=== PATIENT | male | born 1990 | race Caucasian/White ===

== ENCOUNTER 2021-11-04 21:28 | Emergency (ER) | payer OTHER, SELFPAY ==
[2021-11-04 23:06] VITALS: BP 168/97; PULSE 78; RESP 18; TEMP 36.4; O2SAT 95; BMI 31.5
--- NOTE | 2021-11-05 05:08 | ED.ANIMALBIT ---
HPI - Animal Bite General Chief Complaint: Wound/Laceration Stated Complaint: bit by a raccoon Time Seen by Provider: 11/05/21 04:45 Source: patient Mode of arrival: ambulatory Limitations: no limitations History of Present Illness HPI narrative: 31-year-old male who presents emergency department for evaluation of a raccoon bite to his left ring finger. The patient states that he w The patient states that he started a raccoon and the raccoon then did his finger. The raccoon then ran away. The patient noticed a small puncture wound to his left ring finger. He states that he irrigated and washed the wound at home. He was concerned about possible rabies so he came to the emergency department for evaluation. He states that his last tetanus shot was greater than 10 years. He denied being ill in any way prior to this event.ent onto his porch to move a box and there was a raccoon by the box. complaint: animal bite Onset (ago): hour(s) Animal: other (raccoon) Mechanism: bite Location: other Location - Extremities: left: shoulder Context: provoked Associated symptoms: none Treatments prior to arrival: irrigation Related Data Patient tetanus UTD: No Allergies Allergy/AdvReac Type Severity Reaction Status Date / Time No Known Allergies Allergy Verified 11/05/21 04:28 Review of Systems Review of Systems: Yes all other systems are reviewed and are negative [facility] Past Medical History [facility] Narrative: past medical history: None. Past surgical history: None. Social history: He denies tobacco, alcohol and drug use. Social History Social History Advance Directives: No Advance Directives Information Provided: No Physical Exam ED Vital Signs: Vital Signs - 24 hr 11/04/21 23:06 Temperature 97.6 F Pulse Rate 78 Respiratory Rate 18 Blood Pressure 168/97 H Pulse Oximetry 95 Oxygen Delivery Method Room Air BMI result Body Mass Index 31.5 Const General: cooperative and no acute distress Orientation/consciousness: oriented to person and oriented to place Limitations: no limitations HENMT Head: Yes normal to inspection, Yes normocephalic and Yes atraumatic Ears: external ears normal General nose exam: Normal external nose present Face and sinus: Yes normal facial exam Mouth: Normal oral and palatal mucosa present Throat: Yes posterior oropharynx normal Eyes General: appearance normal, both eyes and all related structures Neck Neck: Yes normal visual inspection, Yes no lymphadenopathy, Yes trachea midline and Yes supple Chest Chest palpation & inspection: normal inspection of the chest and normal palpation of entire chest wall Resp Effort & Inspection: normal respiratory effort and able to speak in complete sentences Auscultation: clear to auscultation bilaterally Cardio Rate: regular rate Rhythm: regular rhythm Heart sounds: S1 normal heart sound present, S2 normal heart sound present and no murmurs GI Inspection: Yes normal to inspection Palpation (GI): Soft to palpation, nontender and no guarding Auscultation: normal bowel sounds General: Yes no CVA tenderness Back/Spine/Pelvis Back: no CVA tenderness Skin General skin exam: no rashes or lesions noted Neuro General: oriented to person and oriented to place Cognition (Neuro): normal cognition Extrem Other: Small puncture wound to the left ring finger Psych Appearance: grossly normal Speech and movement: Normal speech and movement present Affect: normal affect Attitude: cooperative Course Course Course Narrative: 31-year-old male who presents emergency department for evaluation of bite wound to his left ring finger caused by a raccoon. The patient wound at home. His exam does reveal small puncture wound however given the fact that this was caused by a wild animal, the patient will need treatment for rabies. The patient was given his 1st rabies vaccination IM he was also given rabies immunoglobulin IM as well. Patient's Tdap was updated. The patient is to return to the Outpatient infusion clinic for his next 3 rabies vaccinations. Discharge Plan Discharge Clinical Impression: Bitten by raccoon, Need for rabies vaccination Patient Disposition: Home, Self-Care Instructions: Animal Bite (ED), Rabies (ED) Additional Instructions: transfer [facility] had a raccoon bite to your finger. This is a high risk wound for rabies. You received your 1st rabies vaccination here in the emergency department. Please follow the rabies vaccine schedule return to the emergency department for your follow-up vaccines. Your also treated with the rabies immunoglobulin, this gives you immediate immediately against rabies. You do not need this shot again. You were given a tetanus diptheria and Pertussin (Tdap) vaccine. Watch for signs of infection which include redness, swelling, drainage of pus, increased pain, red streaks going up your finger. If the wound looks infected and then you need to be started on antibiotics either by your doctor or the emergency department. Starting you on antibiotics before there was an infection is not helpful and does not prevent infection Follow-up with your doctor in 2 days. Please return to the emergency department if your symptoms get worse or if you develop any symptoms that are concerning to you. Interventions: ED Discharge Assessment Last Done: 11/05/21 05:34 Discharge Date/Time: 11/05/21 05:34
[2021-11-05] MEDS: Rabies Vaccine (PCEC)/PF 1 ML VIAL IM (05:09)
[2021-11-05] MEDS: Rabies Immune Globulin/PF 900 UNIT/3 ML VIAL 1995.8 UNIT IM (05:11)
[2021-11-05] MEDS: Diphth,Pertus(ACell),Tet Adult 0.5 ML SYRINGE IM (05:17)
== END 2021-11-05 05:34 | disposition home or self-care (01) ==
PROVIDERS: Emergency Provider Emergency Medicine Emergency Medical Services
DX: S60.475A Other superficial bite of left ring finger, initial encounter (principal); S61.215A Laceration without foreign body of left ring finger without damage to nail, initial encounter; W55.51XA Bitten by raccoon, initial encounter; Y93.9 Activity, unspecified; Y92.9 Unspecified place or not applicable; Y99.9 Unspecified external cause status; Z20.3 Contact with and (suspected) exposure to rabies; Z29.14 Encounter for prophylactic rabies immune globulin; Z79.899 Other long term (current) drug therapy
CPT/HCPCS: 90375; 90471; 90675; 90715; 96372; 96374; 99282; 99284

== ENCOUNTER 2021-11-08 15:08 | Outpatient (REF) | payer OTHER, SELFPAY | END 2021-11-08 15:09 | disposition home or self-care (01) | LOC: HO.MDS 15:08 | PROVIDERS: Visit Provider Emergency Medicine Emergency Medical Services | DX: Z29.14 Encounter for prophylactic rabies immune globulin (principal); S60.47 Other superficial bite of fingers; W55.51XD Bitten by raccoon, subsequent encounter; Z20.3 Contact with and (suspected) exposure to rabies | CPT/HCPCS: 90471; 90675 ==

== ENCOUNTER 2021-11-12 10:05 | Outpatient (REF) | payer OTHER, SELFPAY | END 2021-11-12 10:06 | disposition home or self-care (01) | LOC: HO.MDS 10:05 | PROVIDERS: Visit Provider Emergency Medicine Emergency Medical Services | DX: Z29.14 Encounter for prophylactic rabies immune globulin (principal); S60.47 Other superficial bite of fingers; W55.51XD Bitten by raccoon, subsequent encounter; Z20.3 Contact with and (suspected) exposure to rabies | CPT/HCPCS: 90471; 90675 ==

== ENCOUNTER 2021-11-19 10:01 | Outpatient (REF) | payer OTHER, SELFPAY | END 2021-11-19 10:02 | disposition home or self-care (01) | LOC: HO.MDS 10:01 | PROVIDERS: Visit Provider Emergency Medicine Emergency Medical Services | DX: Z29.14 Encounter for prophylactic rabies immune globulin (principal); S60.47 Other superficial bite of fingers; S61.215D Laceration without foreign body of left ring finger without damage to nail, subsequent encounter; W55.51XD Bitten by raccoon, subsequent encounter; Z20.3 Contact with and (suspected) exposure to rabies | CPT/HCPCS: 90471; 90675 ==